=== PATIENT | female | born 1995 | race Asian ===

== ENCOUNTER 2016-11-06 01:48 | Emergency (ER) | payer OTHER ==
[~2016-11-06] VITALS: Ht 157.5 cm; Wt 65.9 kg
[2016-11-06 01:51] VITALS: BP 138/105; PULSE 59; RESP 28; O2SAT 98
--- NOTE | 2016-11-06 02:03 | ED.REPORT ---
HPI-Allergic Reaction Date of Service Nov 06, 2016 ED Provider: Pedro Cheng MD Pt is a 21 y.o. female with a hx of eczema, anxiety, and depression who presents to the ED c/o an allergic reaction onset 1 hour prior to arrival. Pt states she had eaten an apple, that she had gotten from [facility] [employer], on her drive home from a concert in [place]. She states that after eating the apple she began to experience itchiness to her throat, eyes, and tongue. She states she then began to experience difficulty breathing. Upon examination pt states that her symptoms are improved and her SOB is resolved. She endorses to THC use today. Nursing Notes Stated Complaint: POSSIBLE ALLERGIC REACTION Chief Complaint: Allergic Reaction Nursing Notes Reviewed: Yes Allergies: Coded Allergies: sulfamethoxazole (Verified Allergy, Unknown, 11/06/16) trimethoprim (Verified Allergy, Unknown, 11/06/16) General Time Seen by MD: 02:02 Chief Complaint Allergic reaction Hx Obtained From: Patient Arrived By: Walk-in Onset Occurred: 1 - 4 hours ago Context of Onset: Food allergy Symptom Duration: Since onset Severity: Current: No pain currently Severity: Maximum: No pain Past Medical History Past Medical History Eczema Anxiety Depression Past Surgical History None reported Ambulatory Status Independent Review of Systems Respiratory: Reports: Shortness of breath Allergy / Immune: Reports: Allergic reaction, Itching (Throat, eyes, tongue) Complete sys rev & neg: except as marked. Physical Exam Initial Vital Signs Vital Signs (First) Date Time Temp Pulse Resp B/P Pulse Ox O2 Delivery O2 Flow Rate FiO2 11/06/16 01:51 36.2 59 28 138/105 98 Room Air Initial VS: Reviewed, Vital signs abnormal Abdomen / GI: No distention Extremities: Vascular intact, Neuro intact Neurologic: Alert, Oriented, Nonfocal Psychiatric: Mood/affect normal, Behavior normal, Normal thought content General/Constitutional: Awake, Alert, Well appearing, Well developed, Well hydrated, Well nourished, Not toxic appearing Respiratory / Chest: Atraumatic, Breath sounds NL, Breath sounds = bilat, No respiratory distress, No wheezing Cardiovascular: Heart rate NL, Regular rhythm, Heart sounds NL, Peripheral circulation NL Skin: Atraumatic, Color NL, No rash, Warm, Dry, Intact Head / Eyes: Atraumatic, Normocephalic, PERRL ENT: Atraumatic, Airway patent, Mucous membranes moist, Pharynx NL, No pooling of secretions, No facial swelling Pharynx / Tonsils / Uvula: Positive: Uvula edematous (mild) Re-Eval/Medical Decision Med Decision/Clinical Course Nonspecific allergic reaction which resolved with time and Benadryl. Continue Benadryl as needed. Follow-up with primary provider for further evaluation. Source of Hx: Old records Re-Evaluation/Progress : Time of Eval: 02:53 Patient Status: Condition improved Re-Evaluation/Progress Note: Pt rechecked. Pt's symptoms have resolved. Discussed plan for discharge, pt understands and agrees with plan. Counseled Regarding: Diagnosis, Lab results, Need for follow-up, When/why to return to ED Discharge & Departure Primary Impression: Allergic reaction to food Encounter type: initial encounter Qualified Code: T78.1XXA - Other adverse food reactions, not elsewhere classified, initial encounter Disposition: Home Discharge Condition All VS Reviewed: Yes Condition: Improved Patient Instructions: Food Allergy (ED) Additional Instructions: It is unclear what you are allergic to. There is no way to further evaluate this at this time. Benadryl as needed for recurrent symptoms. Return to emergency room if you get marked worsening in her breathing again. Follow-up with your regular doctor routinely. Referrals: [facility] [place] Att[facility] Portions of this note were transcribed by Diane Bonner. I, Dr. Cheng personally performed the history, physical exam and medical decision-making; I reviewed and confirmed the accuracy of the information in the transcribed note. Signed by: Zaid Del Valle, 11/06/16 and 0255. copies to: [facility] Pedro Cheng MD Nov 06, 2016 02:03 DIANE BONNER Nov 06, 2016 02:08
[2016-11-06] MEDS ORDERED: diphenhydrAMINE 50 mg Capsule PO ONE (02:05)
[2016-11-06 02:56] VITALS: BP 122/86; PULSE 62; RESP 16; O2SAT 98
== END 2016-11-06 02:57 | disposition home or self-care (01) ==
LOC: SED 01:48
DX: T78.1XXA Other adverse food reactions, not elsewhere classified, initial encounter (principal); X58.XXXA Exposure to other specified factors, initial encounter; Y93.89 Activity, other specified; Y92.9 Unspecified place or not applicable; Y99.8 Other external cause status; Z88.8 Allergy status to other drugs, medicaments and biological substances; Z88.1 Allergy status to other antibiotic agents